=== PATIENT | female | born 1935 | race Caucasian/White ===

== ENCOUNTER 2019-07-03 13:53 | Emergency (ER) | payer MEDICARE, BC ==
--- NOTE | 2019-07-03 15:03 | ER Document Report ---
ED Medical Screen (RME) - General Chief Complaint: Eye Problem Stated Complaint: PAIN/REDNESS OF RIGHT EYE Time Seen by Provider: 07/03/19 14:54 Primary Care Provider: EVA PERDOMO PA-C [Primary Care Provider] - Follow up as needed Mode of Arrival: Wheelchair Information source: Patient, Relative Notes: 83-year-old female that was recently exposed bacterial conjunctivitis presents to the emergency department with erythema and discharge to the right eye. Reports symptoms started last . She was taken to the providers office today and sent her here because he is worried about infection behind the eye. Patient reports severe pain around the orbit. She reports she has been crying and talking to dog about the pain. No other complaint such as fever vomiting diarrhea. I have greeted and performed a rapid initial assessment of this patient. A comprehensive ED assessment and evaluation of the patient, analysis of test results and completion of the medical decision making process will be conducted by additional ED providers. TRAVEL OUTSIDE OF THE [place] IN LAST 30 DAYS: No - Related Data Allergies/Adverse Reactions: amoxicillin [Amoxicillin] Allergy (Verified 05/23/15 12:45) sulfamethoxazole [From Septra] Allergy (Verified 05/23/15 12:45) trimethoprim [From Septra] Allergy (Verified 05/23/15 12:45) Past Medical History - Social History Frequency of alcohol use: None Drug Abuse: None - Past Medical History Cardiac Medical History: Reports: Hx Hypercholesterolemia, Hx Hypertension Endocrine Medical History: Reports: Hx Diabetes Mellitus Type 2 - Immunizations Hx Diphtheria, Pertussis, Tetanus Vaccination: Yes Physical Exam - Vital signs Vitals: Temp Pulse Resp BP Pulse Ox 97.6 F 61 16 142/72 H 94 07/03/19 14:07/03/19 14:07/03/19 14:07/03/19 14:07/03/19 14:01 Course - Vital Signs Vital signs: Temp Pulse Resp BP Pulse Ox 97.6 F 61 16 142/72 H 94 07/03/19 14:07/03/19 14:07/03/19 14:07/03/19 14:01 07/03/19 14:01 Doctor's Discharge - Discharge Referrals: EVA PERDOMO PA-C [Primary Care Provider] - Follow up as needed
[2019-07-03 16:07] LABS: ABSOLUTE BASOPHILS # (AUTO) 0.1 10^3/uL (0.0-0.2); ABSOLUTE EOSINOPHILS # (AUTO) 1.3 10^3/uL (0.0-0.6); ABSOLUTE LYMPHOCYTES (AUTO) 3.6 10^3/uL (0.5-4.7); ABSOLUTE MONOCYTES (AUTO) 1.2 10^3/uL (0.1-1.4); ABSOLUTE NEUT (AUTO) 5.8 10^3/uL (1.7-8.2); BASOPHILS % (AUTO) 0.9 % (0-2); EOSINOPHILS % (AUTO) 10.5 % (0-6); HEMATOCRIT 36.3 % (36.0-47.0); HEMOGLOBIN 11.6 g/dL (12.0-15.5); LYMPHOCYTES % (AUTO) 30.2 % (13-45); MEAN CORPUSCULAR HEMOGLOBIN 30.8 pg (27.0-33.4); MEAN CORPUSCULAR VOLUME 96 fl (80-97); MONOCYTES % (AUTO) 9.9 % (3-13); PLATELET COUNT 354 10^3/uL (150-450); RED BLOOD COUNT 3.77 10^6/uL (3.72-5.28); RED CELL DISTRIBUTION WIDTH 16.2 % (11.5-14.0); SEGMENTED NEUTROPHILS % (AUTO) 48.5 % (42-78); TOTAL CELLS COUNTED % (AUTO) 100 %; WHITE BLOOD COUNT 11.9 10^3/uL (4.0-10.5)
[2019-07-03 17:26] LABS: ALBUMIN 3.9 g/dL (3.5-5.0); ALKALINE PHOSPHATASE 189 U/L (38-126); ANION GAP 12 (5-19); ASPARTATE AMINO TRANSFERASE 54 U/L (14-36); BILIRUBIN,DIRECT 0.4 mg/dL (0.0-0.4); BILIRUBIN,TOTAL 0.5 mg/dL (0.2-1.3); BLOOD UREA NITROGEN 32 mg/dL (7-20); CALCIUM 9.7 mg/dL (8.4-10.2); CARBON DIOXIDE 21 mmol/L (22-30); CHLORIDE 106 mmol/L (98-107); GLUCOSE 114 mg/dL (75-110); POTASSIUM 4.9 mmol/L (3.6-5.0)
[2019-07-03] MEDS ORDERED: LEVOFLOXACIN 750 MG TABLET PO ONE (22:40)
[2019-07-03] MEDS ORDERED: CEFTRIAXONE INJ 1000 MG VIAL IV ONE (22:40)
--- NOTE | 2019-07-03 22:40 | ER Document Report ---
ED General - General Chief Complaint: Eye Problem Stated Complaint: PAIN/REDNESS OF RIGHT EYE Time Seen by Provider: 07/03/19 14:54 Primary Care Provider: EVA PERDOMO PA-C [COMMUNITY BASED STAFF] - Follow up as needed Mode of Arrival: Wheelchair Information source: Patient - Son does much of the talking, Relative TRAVEL OUTSIDE OF THE [place] IN LAST 30 DAYS: No - HPI Onset: Other - this Week; patients son reports that he had this around 2 weeks ago and has to take care of his mother because of a stroke with left hemiplegia; he reports he has to help her with ADLs and with feeding. Patient now has right eye redness and drainage - Related Data Allergies/Adverse Reactions: amoxicillin [Amoxicillin] Allergy (Verified 05/23/15 12:45) sulfamethoxazole [From Septra] Allergy (Verified 05/23/15 12:45) trimethoprim [From Septra] Allergy (Verified 05/23/15 12:45) Past Medical History - General Information source: Patient, Relative - Social History Smoking Status: Never Smoker Cigarette use (# per day): No Chew tobacco use (# tins/day): No Smoking Education Provided: No Frequency of alcohol use: None Drug Abuse: None Family History: Reviewed & Not Pertinent Patient has suicidal ideation: No Patient has homicidal ideation: No - Past Medical History Cardiac Medical History: Reports: Hx Hypercholesterolemia, Hx Hypertension Endocrine Medical History: Reports: Hx Diabetes Mellitus Type 2 - Immunizations Hx Diphtheria, Pertussis, Tetanus Vaccination: Yes Hx Pneumococcal Vaccination: 07/16/12 Review of Systems - Review of Systems Constitutional: Weakness - Left hemiplegia, Recent illness EENT: Eye pain, Eye discharge, Blurred vision - Right eye with crusting Physical Exam - Vital signs Vitals: Temp Pulse Resp BP Pulse Ox 97.6 F 61 16 142/72 H 94 07/03/19 14:01 07/03/19 14:01 07/03/19 14:01 07/03/19 14:01 07/03/19 14:01 Interpretation: Hypertensive - General General appearance: Alert - HEENT Head: Normocephalic Eyes: No: Normal Conjunctiva: Injected, Purulent discharge. No: Normal Cornea: Normal - Respiratory Respiratory status: Respiratory distress Chest status: Tender - Cardiovascular Rhythm: Regular - Abdominal Inspection: Normal Course - Vital Signs Vital signs: Temp Pulse Resp BP Pulse Ox 98.1 F 62 18 197/84 H 92 07/03/19 18:01 07/03/19 16:14 07/03/19 22:01 07/03/19 22:01 07/03/19 22:01 - Laboratory Result Diagrams: 07/03/19 15:53 07/03/19 16:46 Laboratory results interpreted by me: 07/03/19 07/03/19 15:53 16:46 WBC 11.9 H Hgb 11.6 L RDW 16.2 H Eos % (Auto) 10.5 H Absolute Eos (auto) 1.3 H Carbon Dioxide 21 L BUN 32 H Creatinine 1.71 H Est GFR ( Amer) 35 L Est GFR (MDRD) Non-Af 29 L Glucose 114 H AST 54 H Alkaline Phosphatase 189 H - Diagnostic Test Radiology reviewed: Reports reviewed - Right periorbital cellulitis but no post septal involvement Critical Care Note - Critical Care Note Total time excluding time spent on procedures (mins): 60 Comments: Discussed this case with Dr. Darvin Chavarria Discharge - Discharge Clinical Impression: Conjunctivitis due to adenovirus, right eye, Periorbital cellulitis of right eye Condition: Good Disposition: HOME, SELF-CARE Additional Instructions: Follow-up with utilization engineer Dr Maher with personal doctor return to ER as needed take medicines as directed; apply eyedrops as directed Prescriptions: Neomy Sulf/Polymyx B Sulf/Hc [Cortisporin Eye Drops] 2 drop RT_EYE QID #7.5 ml Levofloxacin [Levaquin 750 mg Tablet] 500 mg PO DAILY #10 tablet Referrals: EVA PERDOMO PA-C [COMMUNITY BASED STAFF] - Follow up as needed
[2019-07-03] MEDS ORDERED: CLONIDINE HCL 0.2 MG TABLET PO ONE (22:47)
--- NOTE | 2019-07-03 23:43 | RADIOLOGY REPORT (SQ) ---
CT face and sinuses without contrast on 07/03/2019 11:03 PM CLINICAL INDICATION: Right eye pain TECHNIQUE: Multiple axial images are obtained throughout the face/sinuses without the administration of contrast. Sagittal and coronal reformatted images are also performed and reviewed. This exam was performed according to our departmental dose-optimization program, which includes automated exposure control, adjustment of the mA and/or kV according to patient size and/or use of iterative reconstruction technique. Total DLP is 594.64 mGy*cm. COMPARISON: None FINDINGS: There is nasal septal deviation to the right. There is mucosal thickening that narrows the right maxillary sinus ostiomeatal unit. Paranasal sinuses are otherwise clear. Degenerative changes are noted in the left TMJ. Degenerative changes are noted in the cervical spine. 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 There are no acute fracture lines. There is mild right periorbital soft tissue swelling that may be related to periorbital cellulitis. No evidence of post septal involvement of the right eye is noted . No mass or fluid collection is noted. IMPRESSION: Findings suggesting a right periorbital cellulitis with no evidence of post septal involvement of the right eye.
--- NOTE | 2019-07-03 23:44 | RADIOLOGY REPORT (SQ) ---
EXAM DESCRIPTION: CT HEAD WITHOUT IV CONTRAST COMPLETED DATE/TME: 07/03/2019 00:00 CLINICAL HISTORY: 83 years, Female, HX OF CVA COMPARISON: May 23, 2015 TECHNIQUE: Images stored on PACS. All CT scanners at this facility use dose modulation, iterative reconstruction, and/or weight based dosing when appropriate to reduce radiation dose to as low as reasonably achievable (ALARA). [facility]: Dose Right [facility]: CareDose [facility]: Dose Right [facility]: Teradose 4D [facility]: [employer] LIMITATIONS: None. FINDINGS: Obrien-white differentiation is normal. An area of encephalomalacia is identified right temporal parietal. Age-appropriate involutional change. No acute intracranial hemorrhage. Vascular calcification is identified in both anterior and posterior circulation. Paranasal sinuses are grossly clear. Mastoid air cells are clear. Orbits and eyeballs are unremarkable. Although the is cephalization right temporoparietal was not present in 2014, it is not acute IMPRESSION: No acute process. 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 Age-related involutional changes are identified. Presumed old small vessel ischemic changes are seen predominantly in a periventricular distribution. TECHNICAL DOCUMENTATION: Quality ID # [id number]: Final reports with documentation of one or more dose reduction techniques (e.g., Automated exposure control, adjustment of the mA and/or kV according to patient size, use of iterative reconstruction technique) copyright 2011 [employer]- All Rights Reserved
[2019-07-04 00:51] VITALS: BP 157/75
== END 2019-07-04 00:51 | disposition home or self-care (01) ==
LOC: ER 13:53
DX: H10.9 Unspecified conjunctivitis (principal); B97.0 Adenovirus as the cause of diseases classified elsewhere; L03.213 Periorbital cellulitis; I10 Essential (primary) hypertension; E11.9 Type 2 diabetes mellitus without complications; Z88.0 Allergy status to penicillin; Z88.1 Allergy status to other antibiotic agents
CPT/HCPCS: 99285; 96365; 36415; 87070; 87205; 85025; 87077; 80053; 70450; 70486; A9270 ×2; J0696